=== PATIENT | female | born 1970 | race American Indian/Alaskan Native ===

== ENCOUNTER 2016-08-11 13:39 | Emergency (ER) | payer MEDICARE ==
[2016-08-11 14:21] VITALS: BP 107/72
--- NOTE | 2016-08-11 14:25 | Emergency Department Report ---
Entered by DAVID PAUL, acting as scribe for EUGENIO DUMONT NP. Chief Complaint: Abdominal Pain Stated Complaint: PAIN LOWER ABD/UPPER LEFT JAW Time Seen by Provider: 08/11/16 14:17 - HPI History of Present Illness: 46 y/o female presents c/o severe, pressure-like lower abd pain that has been going on for about a month. Sx include N/V, left side jaw pain from a previous injury and pressure during urination. Pt states she has hernias that poke out causing the pain. - ROS Review of Systems: +N +V +left side jaw pain +pressure during urination - Exam Vital Signs: Vital Signs 08/11/16 14:17 Temperature 99.1 F Pulse Rate 74 Respiratory 16 Rate Blood Pressure 107/72 O2 Sat by Pulse 100 Oximetry Physical Exam: PT holding left side of face Pt's abd is flat, suprapubic tenderness MSE screening note: Focused history and physical exam performed. Due to findings the following was ordered: labs ED Disposition for MSE Condition: Stable This documentation as recorded by the scribe,DAVID PAUL,accurately reflects the service I personally performed and the decisions made by ,EUGENIO DUMONT [employer].
[2016-08-11 14:52] LABS: Basophils % (Auto) 0.9 % (0.0-1.8); Eosinophils % (Auto) 1.6 % (0.0-4.3); Hematocrit 35.8 % (30.3-42.9); Hemoglobin 11.6 gm/dl (10.1-14.3); Mean Corpuscular HGB Conc 32 % (30-34); Mean Corpuscular Hemoglobin 28 pg (28-32); Mean Corpuscular Volume 85 fl (79-97); Platelet Count 234 K/mm3 (140-440); Red Blood Count 4.22 M/mm3 (3.65-5.03); Red Cell Distribution Width 13.6 % (13.2-15.2); White Blood Count 8.7 K/mm3 (4.5-11.0)
[2016-08-11 15:03] LABS: Alanine Aminotransferase 32 units/L (7-56); Albumin 4.2 g/dL (3.9-5); Albumin/Globulin Ratio 1.2 %; Alkaline Phosphatase 75 units/L (35-129); Anion Gap 19 mmol/L; Bilirubin,Total 0.2 mg/dL (0.1-1.2); Blood Urea Nitrogen 16 mg/dL (7-17); Calcium 9.6 mg/dL (8.4-10.2); Carbon Dioxide 26 mmol/L (22-30); Chloride 102.3 mmol/L (98-107); Glucose 97 mg/dL (65-100); Lipase 32 units/L (13-60); Potassium 3.8 mmol/L (3.6-5.0); Sodium 143 mmol/L (137-145); Total Protein 7.6 g/dL (6.3-8.2)
[2016-08-11 15:28] LABS: Bilirubin,Urine NEG (Negative); Blood,Urine NEG (Negative); Ketones,Urine TR mg/dL (Negative); Leukocyte Esterase,Urine LG (Negative); Mucus,Urine FEW /HPF; Nitrite,Urine NEG (Negative); Protein,Urine <15 mg/dL mg/dL (Negative); Urobilinogen,Urine < 2.0 mg/dL (<2.0)
[2016-08-11] MEDS: ULTRAM PO ONE (17:12)
[2016-08-11] MEDS ORDERED: TYLENOL ONE (22:30)
[2016-08-11] MEDS: TYLENOL PO ONE (22:52)
== END 2016-08-12 00:16 | disposition left against medical advice (07) ==
LOC: ED 13:39
DX: R10.30 Lower abdominal pain, unspecified (principal); R11.2 Nausea with vomiting, unspecified; Z53.21 Procedure and treatment not carried out due to patient leaving prior to being seen by health care provider
CPT/HCPCS: 36415; 80053; 81001; 83690; 85025

== ENCOUNTER 2017-07-19 09:19 | Emergency (ER) | payer MEDICARE ==
[2017-07-19 09:32] VITALS: BP 146/92
[2017-07-19] MEDS ORDERED: TORADOL IM ONE (11:29)
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
== END 2017-07-19 11:48 | disposition home or self-care (01) ==
LOC: ED 09:19
DX: K02.9 Dental caries, unspecified (principal); M54.41 Lumbago with sciatica, right side; G89.29 Other chronic pain; Z88.0 Allergy status to penicillin; Z90.710 Acquired absence of both cervix and uterus; Z87.891 Personal history of nicotine dependence
CPT/HCPCS: 96372; 99282; J1885

== ENCOUNTER 2020-02-19 00:37 | Emergency (ER) | payer MEDICARE ==
[2020-02-19 02:01] LABS: Basophils % (Auto) 0.4 % (0.0-1.8); Eosinophils % (Auto) 0.3 % (0.0-4.3); Hematocrit 37.7 % (30.3-42.9); Hemoglobin 12.2 gm/dl (10.1-14.3); Lymphocytes # (Auto) 1.8 K/mm3 (1.2-5.4); Mean Corpuscular HGB Conc 32 % (30-34); Mean Corpuscular Volume 86 fl (79-97); Monocytes # (Auto) 0.5 K/mm3 (0.0-0.8); Monocytes % (Auto) 4.1 % (0.0-7.3); Platelet Count 241 K/mm3 (140-440); Red Blood Count 4.37 M/mm3 (3.65-5.03); Red Cell Distribution Width 13.7 % (13.2-15.2)
[2020-02-19 02:14] LABS: Alanine Aminotransferase 24 units/L (7-56); Albumin 4.6 g/dL (3.9-5); BUN/Creatinine Ratio 16; Blood Urea Nitrogen 13 mg/dL (7-17); Calcium 10.3 mg/dL (8.4-10.2); Hemolysis Index 4
[2020-02-19 03:11] LABS: Bilirubin,Urine NEG (Negative); Blood,Urine SM (Negative); Color,Urine Yellow (Yellow); Mucus,Urine 3+ /HPF
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
[2020-02-19] MEDS ORDERED: ONDANSETRON 4 MG/2 ML INJ IV ONE (06:18)
[2020-02-19] MEDS ORDERED: MORPHINE 4 MG/1 ML INJ IV ONE (06:18)
[2020-02-19] MEDS ORDERED: SODIUM CHLORIDE 0.9% 1000 ML 2,000 ML IV ONE (06:18)
--- NOTE | 2020-02-19 07:03 | XRay Report ---
CHEST 1 VIEW 02/19/2020 5:54 AM INDICATION / CLINICAL INFORMATION: cough weak n/v. COMPARISON: None available. FINDINGS: SUPPORT DEVICES: None. HEART / MEDIASTINUM: No significant abnormality. LUNGS / PLEURA: No significant pulmonary or pleural abnormality. No pneumothorax. ADDITIONAL FINDINGS: No significant additional findings. IMPRESSION: 1. No acute findings. Signer Name: Noel Lyn MD Signed: 02/19/2020 6:58 AM Workstation Name: [id number]
--- NOTE | 2020-02-19 08:40 | Cat Scan Report ---
CT ABDOMEN AND PELVIS WITH CONTRAST INDICATION / CLINICAL INFORMATION: MAIN. Left lower quadrant flank pain nausea vomiting and weakness. TECHNIQUE: Axial CT images were obtained through the abdomen and pelvis after IV contrast. All CT scans at this location are performed using CT dose reduction for ALARA by means of automated exposure control. COMPARISON: None available. FINDINGS: LOWER CHEST: No significant abnormality. LIVER: Small 4 mm hypoattenuating lesion of the right hepatic lobe (series 2 image 44) too small to characterize. GALLBLADDER: No significant abnormality. BILE DUCTS: No significant abnormality. PANCREAS: No significant abnormality. SPLEEN: No significant abnormality. ADRENALS: No significant abnormality. RIGHT KIDNEY / URETER: Small right-sided simple renal cyst. No calcified renal stones or hydronephros is. LEFT KIDNEY / URETER: Tiny left-sided simple renal cysts. No calcified renal stones or hydronephrosis . STOMACH / SMALL BOWEL: No significant abnormality. COLON: Mild colonic diverticulosis. No evidence of diverticulitis. APPENDIX: No significant abnormality. PERITONEUM: No free fluid. No free air. No fluid collection. LYMPH NODES: No significant adenopathy. AORTA / ARTERIES: No significant abnormality. IVC / VEINS: No significant abnormality. URINARY BLADDER: No significant abnormality. REPRODUCTIVE ORGANS: No significant abnormality. ADDITIONAL FINDINGS: None. SKELETAL SYSTEM: Multilevel degenerative changes are noted of the spine most prominent at L5-S1 with mild retrolisthesis. No aggressive osseous lesions. IMPRESSION: 1. No significant acute abnormality. 2. Mild colonic diverticulosis. No evidence of diverticulitis. Signer Name: Gato Morin MD Signed: 02/19/2020 8:35 AM Workstation Name: [id number]
[2020-02-19] MEDS ORDERED: MORPHINE 15 MG TAB PO ONE (09:10)
[2020-02-19 13:04] VITALS: BP 109/63
== END 2020-02-19 12:58 | disposition home or self-care (01) ==
LOC: ED 00:37
DX: R10.32 Left lower quadrant pain (principal); R82.81 Pyuria; R11.2 Nausea with vomiting, unspecified; F17.200 Nicotine dependence, unspecified, uncomplicated; F12.10 Cannabis abuse, uncomplicated; Z90.49 Acquired absence of other specified parts of digestive tract; Z98.890 Other specified postprocedural states; Z88.0 Allergy status to penicillin
CPT/HCPCS: 36415; 71045; 74177; 80053; 81001; 82550; 83735; 84703; 85025; 87086; 93005; 96361; 96365; 96366; 96375; 99285; J1956; J2270; J2405; J7030; Q9967

== ENCOUNTER 2021-10-29 11:49 | Emergency (ER) | payer MEDICARE ==
[2021-10-29] MEDS ORDERED: oxyCODONE /ACETAMINOPHEN 5-325MG TAB PO ONE (14:06)
--- NOTE | 2021-10-29 14:07 | Event Note ---
Date: 10/29/21 EMS documentation not available at time of chart dictation Medical screening examination note: 51-year-old female presenting with acute exacerbation of chronic pain. Moving 4 extremities and protecting airway. Hemodynamically stable. Oral medication ordered. Detailed history and physical to be performed by oncoming provider. Vital Signs 10/29/21 12:00 Pulse Rate 89 Respiratory 16 Rate Blood Pressure 114/71 [Left] O2 Sat by Pulse 100 Oximetry
[2021-10-29] MEDS ORDERED: KETOROLAC 60 MG/2 ML INJ IM ONE (16:23)
[2021-10-29] MEDS ORDERED: dexAMETHasone 4 MG/ML VIAL IM ONE (16:23)
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
[2021-10-29] MEDS ORDERED: METAXALONE 800 MG TAB PO ONE (17:00)
[2021-10-29 18:47] VITALS: BP 135/72
== END 2021-10-29 20:00 | disposition home or self-care (01) ==
LOC: ED 11:49
DX: M54.50 Low back pain, unspecified (principal); M62.838 Other muscle spasm; K02.9 Dental caries, unspecified; Z90.710 Acquired absence of both cervix and uterus; Z98.890 Other specified postprocedural states; F17.290 Nicotine dependence, other tobacco product, uncomplicated; Z88.0 Allergy status to penicillin; Z88.6 Allergy status to analgesic agent
CPT/HCPCS: 99283; J1100; J1885